=== PATIENT | male | born 1950 | race American Indian/Alaskan Native ===

== ENCOUNTER 2016-09-26 15:27 | Inpatient (IN) | payer MEDICARE ==
[2016-09-26] MEDS ORDERED: NACL 0.9% 500 ML 500 ML IV ONE (16:06)
[2016-09-26] MEDS ORDERED: TYLENOL PR ONE (16:06)
[2016-09-26] MEDS ORDERED: TYLENOL PR STA (16:06)
[2016-09-26] MEDS ORDERED: ZOSYN/NS 4.5GM/100ML 4.5 GM/100 ML VIAL IV ONE (16:35)
[2016-09-26] MEDS ORDERED: NACL 0.9% 1000 ML 1,000 ML IV ONE (16:58)
[2016-09-26] MEDS ORDERED: XOPENEX IH ONE (17:01)
[2016-09-26] MEDS ORDERED: ATROVENT IH ONE (17:01)
[2016-09-26 17:02] LABS: Hematocrit 34.4 % (35.5-45.6); Hemoglobin 10.9 gm/dl (11.8-15.2); Mean Corpuscular HGB Conc 32 % (32-34); Mean Corpuscular Volume 70 fl (84-94); Platelet Count 228 K/mm3 (140-440); Red Cell Distribution Width 17.5 % (13.2-15.2); White Blood Count 10.6 K/mm3 (4.5-11.0)
--- NOTE | 2016-09-26 17:02 | Emergency Department Report ---
ED Fever HPI - General Chief Complaint: Fever Stated Complaint: HIGH TEMP Time Seen by Provider: 09/26/16 16:33 Source: patient Exam Limitations: clinical condition, physical impairment - History of Present Illness Initial Comments: 66-year-old male with a past medical history of dementia, diabetes, hypertension , liver disease, seizures, CVA, peg tube placement presents to the hospital complains of fever and pneumonia. Patient was sent from [facility] with a chest x-ray that was performed today that was read as right upper and lower lobe infiltrate with pleural effusion. Question of aspiration. Patient is nonverbal currently and minimally responsive and unable to provide any history of present illness. ED Review of Systems ROS: Stated complaint: HIGH TEMP Other details as noted in HPI Comment: Unobtainable due to pts medical conditions ED Past Medical Hx - Past Medical History Hx Hypertension: Yes Hx CVA: Yes Hx Congestive Heart Failure: No Hx Diabetes: No Hx Liver Disease: Yes Hx Seizures: Yes Hx Asthma: No Hx COPD: No Hx Dementia: Yes Hx HIV: No Additional medical history: End Stage Liver Disease. Trach. Encephalopathy. Anemia. Gastrostomy. Aphasia. GI Bleed. Hyperlipidemia. - Surgical History Additional Surgical History: PEG placement. - Social History Smoking Status: Unknown if ever smoked - Medications Home Medications: Home Medications Medication Instructions Recorded Confirmed Last Taken Type Ascorbate Calcium [Vitamin C] 500 mg FEEDTUBE BID 09/15/14 06/24/16 Unknown History Aspirin [Aspirin TAB] 325 mg FEEDTUBE QDAY 09/15/14 06/24/16 Unknown History Atorvastatin [Lipitor] 80 mg FEEDTUBE QHS 09/15/14 06/24/16 Unknown History Enoxaparin [Lovenox] 30 mg SQ BID 09/15/14 06/24/16 Unknown History Glycopyrrolate [Robinul Forte] 2 mg FEEDTUBE TID 09/15/14 06/24/16 Unknown History Ipratropium/Albuterol Sulfate 1 ampul IH Q6HRT PRN 09/15/14 06/24/16 Unknown History [Duoneb 0.5 mg-3 mg/3 ml Soln] Metoprolol [Lopressor TAB] 50 mg FEEDTUBE BID 09/15/14 06/24/16 Unknown History amLODIPine [Norvasc] 10 mg FEEDTUBE DAILY 09/15/14 06/24/16 Unknown History Multivit &Minerals/Ferrous Fum 9 mg PO DAILY 11/04/14 06/24/16 Unknown History [Complete Multivit-Mineral Liq] Lactulose [Cephulac] 20 gm FEEDTUBE TID #30 oral.liqd 05/10/15 06/24/16 Unknown Rx Lipase/Protease/Amylase [Pancreaze 1 each FEEDTUBE PRN PRN #30 capsule 05/10/15 06/24/16 Unknown Rx 10,500 Unit] Simple Syrup 30 ml FEEDTUBE PRN PRN #30 05/10/15 06/24/16 Unknown Rx oral.liqd Sodium Bicarbonate 325 mg FEEDTUBE PRN PRN #30 tablet 05/10/15 06/24/16 Unknown Rx Doxycycline [Vibramycin CAP] 100 mg PO Q12HR 7 Days 03/22/16 06/24/16 Unknown Rx LORazepam [Ativan] 2 mg PO Q8HR PRN #30 tablet 03/22/16 06/24/16 Unknown Rx levETIRAcetam [Keppra TAB] 500 mg PO BID #60 tablet 06/25/16 Unknown Rx ED Physical Exam - General Limitations: Physical Limitation - Other Other exam information: General: No limitations, patient is alert in no acute distress Head exam: Atraumatic, normocephalic Eyes exam: Normal appearance ENT: Moist mucous membrane, normal oropharynx Neck exam: Normal inspection Respiratory exam: Bilateral rhonchi with mild expiratory wheeze Cardiovascular: Mild Tachycardia Abdomen: Soft, nondistended, positive PEG tube, no grimace with palpation Extremity: Limited range of motion with contraction : [place] upon arrival Back: Normal Inspection, full range of motion, no tenderness Neurologic: Lethargic, minimally responsive, would not follow commands, contracted extremities Psychiatric: normal affect, normal mood Skin: Left lateral foot superficial ulceration without signs of infection ED Course Vital Signs 09/26/16 09/26/16 09/26/16 15:41 16:09 17:11 Temperature 101.9 F H 102.1 F H Pulse Rate 107 H Pulse Rate [ 110 H Anterior Bilateral Throughout] Respiratory 16 Rate Respiratory 20 Rate [Anterior Bilateral Throughout] Blood Pressure 108/61 Blood Pressure 108/61 [Right] O2 Sat by Pulse 96 Oximetry 09/26/16 17:50 Temperature Pulse Rate Pulse Rate [ 112 H Anterior Bilateral Throughout] Respiratory Rate Respiratory 20 Rate [Anterior Bilateral Throughout] Blood Pressure Blood Pressure [Right] O2 Sat by Pulse Oximetry - Reevaluation(s) Reevaluation #1: 09/26/16 18:00 pt received normal saline, Tylenol, Zofran, Xopenex, Atrovent in the ED 09/26/16 18:00 ED Medical Decision Making - Lab Data Result diagrams: 09/26/16 16:20 09/26/16 16:20 Lab Results 09/26/16 09/26/16 09/26/16 Range/Units 16:20 16:20 16:20 WBC 10.6 (4.5-11.0) K/mm3 RBC 4.90 (3.65-5.03) M/mm3 Hgb 10.9 L (11.8-15.2) gm/dl Hct 34.4 L (35.5-45.6) % MCV 70 L (84-94) fl MCH 22 L (28-32) pg MCHC 32 (32-34) % RDW 17.5 H (13.2-15.2) % Plt Count 228 (140-440) K/mm3 Seg Neutrophils % [employer] Operator PT 14.7 (12.2-14.9) Sec. INR 1.16 H (0.87-1.13) VBG pH (7.320-7.420) Sodium 142 (137-145) mmol/L Potassium 3.4 L (3.6-5.0) mmol/L Chloride 95.6 L (98-107) mmol/L Carbon Dioxide 35 H (22-30) mmol/L Anion Gap 15 mmol/L BUN 17 (9-20) mg/dL Creatinine 1.1 (0.8-1.5) mg/dL Estimated GFR > 60 ml/min BUN/Creatinine Ratio 15.45 % Glucose 115 H (75-100) mg/dL Lactic Acid (0.7-2.0) mmol/L Calcium 8.7 (8.4-10.2) mg/dL Total Bilirubin 0.4 (0.1-1.2) mg/dL ALT 28 (7-56) units/L Alkaline Phosphatase 93 (35-129) units/L Total Protein 7.6 (6.3-8.2) g/dL Albumin 3.2 L (3.9-5) g/dL Albumin/Globulin Ratio 0.7 % Urine Color (Yellow) Urine Turbidity (Clear) Urine pH (5.0-7.0) Ur Specific [place] (1.003-1.030) Urine Protein (Negative) mg/dL Urine Glucose (UA) (Negative) mg/dL Urine Ketones (Negative) mg/dL Urine Blood (Negative) Urine Nitrite (Negative) Urine Bilirubin (Negative) Urine Urobilinogen (<2.0) mg/dL Ur Leukocyte Esterase (Negative) Urine WBC (Auto) (0.0-6.0) /HPF Urine RBC (Auto) (0.0-6.0) /HPF U Epithel Cells (Auto) (0-13.0) /HPF Urine Bacteria (Auto) (Negative) /HPF Urine Mucus /HPF 09/26/16 09/26/16 09/26/16 Range/Units 16:20 16:20 16:44 WBC (4.5-11.0) K/mm3 RBC (3.65-5.03) M/mm3 Hgb (11.8-15.2) gm/dl Hct (35.5-45.6) % MCV (84-94) fl MCH (28-32) pg MCHC (32-34) % RDW (13.2-15.2) % Plt Count (140-440) K/mm3 Seg Neutrophils % PT (12.2-14.9) Sec. INR (0.87-1.13) VBG pH 7.417 (7.320-7.420) Sodium (137-145) mmol/L Potassium (3.6-5.0) mmol/L Chloride (98-107) mmol/L Carbon Dioxide (22-30) mmol/L Anion Gap mmol/L BUN (9-20) mg/dL Creatinine (0.8-1.5) mg/dL Estimated GFR ml/min BUN/Creatinine Ratio % Glucose (75-100) mg/dL Lactic Acid 1.0 (0.7-2.0) mmol/L Calcium (8.4-10.2) mg/dL Total Bilirubin (0.1-1.2) mg/dL ALT (7-56) units/L Alkaline Phosphatase (35-129) units/L Total Protein (6.3-8.2) g/dL Albumin (3.9-5) g/dL Albumin/Globulin Ratio % Urine Color Cherie (Yellow) Urine Turbidity Slightly-cloudy (Clear) Urine pH 5.0 (5.0-7.0) Ur Specific [place] 1.024 (1.003-1.030) Urine Protein 30 mg/dl (Negative) mg/dL Urine Glucose (UA) Neg (Negative) mg/dL Urine Ketones Tr (Negative) mg/dL Urine Blood Neg (Negative) Urine Nitrite Neg (Negative) Urine Bilirubin Neg (Negative) Urine Urobilinogen < 2.0 (<2.0) mg/dL Ur Leukocyte Esterase Mod (Negative) Urine WBC (Auto) 29.0 H (0.0-6.0) /HPF Urine RBC (Auto) 3.0 (0.0-6.0) /HPF U Epithel Cells (Auto) 2.0 (0-13.0) /HPF Urine Bacteria (Auto) 2+ (Negative) /HPF Urine Mucus 2+ /HPF - EKG Data -: EKG Interpreted by Me (sinus tach 101 incomplete right bundle-branch block) - Radiology Data Radiology results: image reviewed (cxr: r upper, r lower infiltrate) - Medical Decision Making Zosyn order to cover for aspiration pneumonia. Patient has indwelling [place]. UA was sent from [place] port and reveals urine leukocytosis. Culture is pending. Patient will be admitted to the hospital for pneumonia. - Differential Diagnosis sepsis, UTI, pneumonia Critical Care Time: No Critical care attestation.: If time is entered above; I have spent that time in minutes in the direct care of this critically ill patient, excluding procedure time. ED Disposition Clinical Impression: Aspiration pneumonia, CVA, old, hemiparesis, Debility, Urine leukocytes, Fever Disposition: OP ADMITTED IP TO THIS HOSP Is pt being admited?: Yes Condition: Stable Time of Disposition: 18:03 (Dr meeks/hosp)
[2016-09-26 17:06] LABS: Mean Corpuscular Hemoglobin 22 pg (28-32)
[2016-09-26 17:19] LABS: Bacteria,Urine 2+ /HPF (Negative); Bilirubin,Urine NEG (Negative); Blood,Urine NEG (Negative); Ketones,Urine TR mg/dL (Negative); Leukocyte Esterase,Urine MOD (Negative); Mucus,Urine 2+ /HPF; Nitrite,Urine NEG (Negative); Urobilinogen,Urine < 2.0 mg/dL (<2.0)
[2016-09-26 17:29] LABS: Alanine Aminotransferase 28 units/L (7-56); Albumin 3.2 g/dL (3.9-5); Albumin/Globulin Ratio 0.7 %; Alkaline Phosphatase 93 units/L (35-129); Anion Gap 15 mmol/L; BUN/Creatinine Ratio 15.45; Bilirubin,Total 0.4 mg/dL (0.1-1.2); Blood Urea Nitrogen 17 mg/dL (9-20); Calcium 8.7 mg/dL (8.4-10.2); Carbon Dioxide 35 mmol/L (22-30); Chloride 95.6 mmol/L (98-107); Glucose 115 mg/dL (75-100); Potassium 3.4 mmol/L (3.6-5.0); Sodium 142 mmol/L (137-145); Total Protein 7.6 g/dL (6.3-8.2)
--- NOTE | 2016-09-26 17:41 | Admit Criteria Form ---
Admission Criteria Documentation: PNEUMONIA DUE TO ASPIRATION Clinical Indications for Admission to Inpatient Care (Place 'X' for any and all applicable criteria): Admission is indicated for ANY ONE of the following(1)(2)(3): [X]I. Respiratory abnormalities [ ]II. Hemodynamic instability [ ]III. Aspiration pneumonitis associated with an acute event (eg, neurologic change, massive emesis, drug overdose) [ ]IV. Patient receives chronic care in a setting (eg, snf care, shelter facility) where care for the aspiration has failed or cannot be provided (eg, patient is clinically unstable, and aggressive medical care is desired) (4) Extended stay beyond goal length of stay may be needed for(1)(6): [ ]a) Continued aspiration [ ]b) Empyema, atelectasis, large pleural effusion or lung abscess [ ]c) Severe hypoxemia or respiratory failure [ ]d) Comorbid clinically significant electrolyte disorder or acute renal injury (eg, hypernatremia, hyponatremia) [ ]e) Need for parenteral or tube (enteral) feedings (eg, severe malnutrition) [ ]f) Active comorbidities (eg, heart failure, COPD, renal failure) [ ]g) Comorbid severe neurologic problems(2)(17) The original [employer] content created by [employer] has been revised. The portions of the content which have been revised are identified through the use of italic text or in bold, and [facility] has neither reviewed nor approved the modified material. All other unmodified content is copyright [employer]. Please see references footnoted in the original [facility] edition 2016 Admission Criteria Met: Yes
[2016-09-26 18:00] LABS: INR 1.16 (0.87-1.13)
[2016-09-26] MEDS ORDERED: SODIUM BICARBONATE FEEDTUBE PRN (19:09)
[2016-09-26] MEDS ORDERED: SIMPLE SYRUP FEEDTUBE PRN (19:09)
[2016-09-26] MEDS ORDERED: ATIVAN PO PRN (19:09)
[2016-09-26] MEDS ORDERED: PANCREAZE DR 10,500 UNIT FEEDTUBE PRN (19:09)
[2016-09-26] MEDS ORDERED: TYLENOL PO PRN (19:10)
[2016-09-26] MEDS ORDERED: ZOFRAN IV PRN ×2 (19:10→19:13)
[2016-09-26] MEDS ORDERED: DULCOLAX PR PRN ×2 (19:10→19:13)
[2016-09-26] MEDS ORDERED: MILK OF MAGNESIA PO PRN ×2 (19:10→19:13)
[2016-09-26] MEDS ORDERED: MORPHINE IV PRN (19:13)
--- NOTE | 2016-09-26 19:25 | History and Physical Report ---
History of Present Illness Date of examination: 09/26/16 Date of admission: 09/26/16 18:03 Chief complaint: fever History of present illness: 66-year-old male well known to myself with a history of advanced dementia, CVA, hypertension, diabetes, seizure disorder, recurrent aspiration pneumonia. PEG tube placement. Presents from [place] which chief complaint of fever x-ray was obtained at the skilled nursing was found to have right upper lobe infiltrate consistent with aspiration pneumonia. Patient has been recently started on Robinul to see if we could prevent aspiration pneumonia but was unsuccessful. Patient still has recurrent secretions as well as increased risk from PEG tube feedings. At present patient remains chronically ill appearing. She has fever of 102 to and hypotensive. She was chronically ill. Past History Past Medical History: arrhythmia, arthritis, COPD, diabetes, GERD, hypertension , hyperlipidemia, seizures, stroke. denies: acute NC, atrial fib, anemia, CAD, cancer, dialysis, DVT, ESRD, heart failure, hepatitis, HIV/AIDS, hyperthyroidism , hypothyroidism, liver disease, migraines, PVD, pulmonary embolism, renal failure, sarcoidosis Past Surgical History: Other (unknown past surgical history besides PEG tube trach) Social history: no significant social history, other ([facility] will need to consult family about code status.). denies: smoking, alcohol abuse , prescription drug abuse, IV drug use Family history: no significant family history Medications and Allergies Allergies Allergy/AdvReac Type Severity Reaction Status Date / Time No Known Allergies Allergy Verified 08/20/14 06:01 Home Medications Medication Instructions Recorded Confirmed Last Taken Type Ascorbate Calcium [Vitamin C] 500 mg FEEDTUBE BID 09/15/14 06/24/16 Unknown History Aspirin [Aspirin TAB] 325 mg FEEDTUBE QDAY 09/15/14 06/24/16 Unknown History Atorvastatin [Lipitor] 80 mg FEEDTUBE QHS 09/15/14 06/24/16 Unknown History Enoxaparin [Lovenox] 30 mg SQ BID 09/15/14 06/24/16 Unknown History Glycopyrrolate [Robinul Forte] 2 mg FEEDTUBE TID 09/15/14 06/24/16 Unknown History Ipratropium/Albuterol Sulfate 1 ampul IH Q6HRT PRN 09/15/14 06/24/16 Unknown History [Duoneb 0.5 mg-3 mg/3 ml Soln] Metoprolol [Lopressor TAB] 50 mg FEEDTUBE BID 09/15/14 06/24/16 Unknown History amLODIPine [Norvasc] 10 mg FEEDTUBE DAILY 09/15/14 06/24/16 Unknown History Multivit &Minerals/Ferrous Fum 9 mg PO DAILY 11/04/14 06/24/16 Unknown History [Complete Multivit-Mineral Liq] Lactulose [Cephulac] 20 gm FEEDTUBE TID #30 oral.liqd 05/10/15 06/24/16 Unknown Rx Lipase/Protease/Amylase [Pancreaze 1 each FEEDTUBE PRN PRN #30 capsule 05/10/15 06/24/16 Unknown Rx 10,500 Unit] Simple Syrup 30 ml FEEDTUBE PRN PRN #30 05/10/15 06/24/16 Unknown Rx oral.liqd Sodium Bicarbonate 325 mg FEEDTUBE PRN PRN #30 tablet 05/10/15 06/24/16 Unknown Rx Doxycycline [Vibramycin CAP] 100 mg PO Q12HR 7 Days 03/22/16 06/24/16 Unknown Rx LORazepam [Ativan] 2 mg PO Q8HR PRN #30 tablet 03/22/16 06/24/16 Unknown Rx levETIRAcetam [Keppra TAB] 500 mg PO BID #60 tablet 06/25/16 Unknown Rx Active Meds: Active Medications Acetaminophen (Tylenol) 650 mg PO Q4H PRN PRN Reason: Pain MILD(1-3)/Fever >100.5/OCHOA Acetaminophen (Tylenol) 650 mg PO Q4H PRN PRN Reason: Pain MILD(1-3)/Fever >100.5/OCHOA Albuterol/Ipratropium (Duoneb 0.5 Mg-3 Mg/3 Ml Soln) 1 ampul IH Q6HRT JASON Lipase/Protease/Amylase (Pancreodessa Singh 10,500 Unit) 1 each FEEDTUBE PRN PRN PRN Reason: For Clogged Feeding Tube Aspirin (Aspirin) 325 mg FEEDTUBE QDAY JASON Bisacodyl (Dulcolax) 10 mg WV QDAY PRN PRN Reason: Constipation unrelieved by MOM Bisacodyl (Dulcolax) 10 mg W[place] QDAY PRN PRN Reason: Constipation unrelieved by MOM Doxycycline Hyclate (Vibramycin) 100 mg PO Q12HR JASON Enoxaparin Sodium (Lovenox) 30 mg SUB-Q BID JASON Famotidine (Pepcid) 20 mg IV BID JASON Dextrose/Sodium Chloride (D5ns) 1,000 mls @ 100 mls/hr IV DIRECT JASON Lactulose (Cephulac) 20 gm FEEDTUBE TID JASON Levetiracetam (Keppra) 500 mg PO BID JASON Lorazepam (Ativan) 2 mg PO Q8HR PRN PRN Reason: Seizures Magnesium Hydroxide (Milk Of Magnesia) 30 ml PO Q4H PRN PRN Reason: Constipation Magnesium Hydroxide (Milk Of Magnesia) 30 ml PO Q4H PRN PRN Reason: Constipation Morphine Sulfate (Morphine) 2 mg IV Q4H PRN PRN Reason: Pain, Moderate (4-6) Ondansetron HCl (Zofran) 4 mg IV Q8H PRN PRN Reason: N/V unrelieved by Reglan Ondansetron HCl (Zofran) 4 mg IV Q8H PRN PRN Reason: N/V unrelieved by Reglan Simple Syrup (Simple Syrup) 30 ml FEEDTUBE PRN PRN PRN Reason: Hypoglycemia Sodium Bicarbonate (Sodium Bicarbonate) 325 mg FEEDTUBE PRN PRN PRN Reason: For Clogged Feeding Tube Review of Systems ROS unobtainable: due to mental status Constitutional: weight loss, weight gain Exam - Constitutional Vitals: Temp Pulse Resp BP Pulse Ox 102.1 F H 103 H 20 109/64 97 09/26/16 16:09 09/26/16 18:30 09/26/16 18:30 09/26/16 18:30 09/26/16 18:30 General appearance: Present: obese, other (moderate distress chronically ill- appearing) - EENT Eyes: Present: PERRL ENT: hearing intact, clear oral mucosa - Neck Neck: Present: supple, normal ROM - Respiratory Respiratory effort: labored Respiratory: bilateral: diminished, rhonchi (bilateral right greater than left) - Cardiovascular Rhythm: other (tachycardia) Heart Sounds: Present: S1 & S2 - Extremities Extremities: pulses symmetrical, No edema Extremity abnormal: other (abnormal range of motion diminished pulses trace edema decubitus wound on sacrum and left heel stage III and 4) - Abdominal General gastrointestinal: Present: soft, tender, non-distended, other (obese) Male genitourinary: Present: normal - Integumentary Integumentary: Present: clear, warm, dry - Musculoskeletal Musculoskeletal: generalized weakness, other (chronic contractures dense hemiparesis) - Psychiatric Psychiatric: other (nonverbal and unresponsive advanced dementia) - Neurologic Neurologic: focal deficits Results - Labs CBC & Chem 7: 09/26/16 16:20 09/26/16 16:20 Labs: Laboratory Last Values WBC 10.6 K/mm3 (4.5-11.0) 09/26/16 16:20 RBC 4.90 M/mm3 (3.65-5.03) 09/26/16 16:20 Hgb 10.9 gm/dl (11.8-15.2) L 09/26/16 16:20 Hct 34.4 % (35.5-45.6) L 09/26/16 16:20 MCV 70 fl (84-94) L 09/26/16 16:20 MCH 22 pg (28-32) L 09/26/16 16:20 MCHC 32 % (32-34) 09/26/16 16:20 RDW 17.5 % (13.2-15.2) H 09/26/16 16:20 Plt Count 228 K/mm3 (140-440) 09/26/16 16:20 Seg Neutrophils % Medical Claims Processor 09/26/16 16:20 PT 14.7 Sec. (12.2-14.9) 09/26/16 16:20 INR 1.16 (0.87-1.13) H 09/26/16 16:20 VBG pH 7.417 (7.320-7.420) 09/26/16 16:20 Sodium 142 mmol/L (137-145) 09/26/16 16:20 Potassium 3.4 mmol/L (3.6-5.0) L 09/26/16 16:20 Chloride 95.6 mmol/L (98-107) L 09/26/16 16:20 Carbon Dioxide 35 mmol/L (22-30) H 09/26/16 16:20 Anion Gap 15 mmol/L 09/26/16 16:20 BUN 17 mg/dL (9-20) 09/26/16 16:20 Creatinine 1.1 mg/dL (0.8-1.5) 09/26/16 16:20 Estimated GFR > 60 ml/min 09/26/16 16:20 BUN/Creatinine Ratio 15.45 % 09/26/16 16:20 Glucose 115 mg/dL (75-100) H 09/26/16 16:20 Lactic Acid 1.0 mmol/L (0.7-2.0) 09/26/16 16:20 Calcium 8.7 mg/dL (8.4-10.2) 09/26/16 16:20 Total Bilirubin 0.4 mg/dL (0.1-1.2) 09/26/16 16:20 AST 46 units/L (5-40) H 09/26/16 16:20 ALT 28 units/L (7-56) 09/26/16 16:20 Alkaline Phosphatase 93 units/L (35-129) 09/26/16 16:20 Total Protein 7.6 g/dL (6.3-8.2) 09/26/16 16:20 Albumin 3.2 g/dL (3.9-5) L 09/26/16 16:20 Albumin/Globulin Ratio 0.7 % 09/26/16 16:20 Urine Color Cherie (Yellow) 09/26/16 16:44 Urine Turbidity Slightly-cloudy (Clear) 09/26/16 16:44 Urine pH 5.0 (5.0-7.0) 09/26/16 16:44 Ur Specific [place] 1.024 (1.003-1.030) 09/26/16 16:44 Urine Protein 30 mg/dl mg/dL (Negative) 09/26/16 16:44 Urine Glucose (UA) Neg mg/dL (Negative) 09/26/16 16:44 Urine Ketones Tr mg/dL (Negative) 09/26/16 16:44 Urine Blood Neg (Negative) 09/26/16 16:44 Urine Nitrite Neg (Negative) 09/26/16 16:44 Urine Bilirubin Neg (Negative) 09/26/16 16:44 Urine Urobilinogen < 2.0 mg/dL (<2.0) 09/26/16 16:44 Ur Leukocyte Esterase Mod (Negative) 09/26/16 16:44 Urine WBC (Auto) 29.0 /HPF (0.0-6.0) H 09/26/16 16:44 Urine RBC (Auto) 3.0 /HPF (0.0-6.0) 09/26/16 16:44 U Epithel Cells (Auto) 2.0 /HPF (0-13.0) 09/26/16 16:44 Urine Bacteria (Auto) 2+ /HPF (Negative) 09/26/16 16:44 Urine Mucus 2+ /HPF 09/26/16 16:44 - Imaging and Cardiology EKG: image reviewed Chest x-ray: image reviewed Assessment and Plan Advance Directives: No (awaiting family) VTE prophylaxis?: Chemical Plan of care discussed with patient/family: Yes - Patient Problems (1) Aspiration pneumonia Current Visit: Yes Status: Acute Qualifiers: Aspiration pneumonia type: A Laterality: L Lung location: L Plan to address problem: Patient now presents with recurrent episodes of aspiration pneumonia. Secondary to increased secretions PEG tube feedings. Has attempted Robinul at present noneffective. Patient still now has increased volumes of coughing. Persistent coughing persistent secretions persistent drooling. All of this secondary to end-stage dementia. This paints poor picture and a sign of poor structural and functional decline. Would not be able to prevent all aspiration pneumonia and overall prognosis is poor. Quality of life is extremely poor. A tip to call family for discussions about code status. For now we'll bring patient and placed on Zosyn 3.375 mg IV every 8. We'll also treat with vancomycin. Patient has decubitus wounds did not appear to be infected they were present upon admission. Follow-up blood culture data,. Also start patient on duo nebs every 6 hours and patient may benefit from Mucomyst with all the secretions. (2) Debility Current Visit: Yes Status: Acute Plan to address problem: Debility secondary to advanced dementia chronic contractures decubitus wounds. (3) Fever Current Visit: No Status: Acute Qualifiers: Fever type: F Encounter type: E Plan to address problem: Fever secondary to pneumonia. Patient is has persistent fever. (4) Urine leukocytes Current Visit: Yes Status: Acute Plan to address problem: Can be covered with Zosyn and vancomycin. (5) CVA, old, hemiparesis Current Visit: Yes Status: Chronic Plan to address problem: Advance hemiparesis advanced dementia. Risk factor control. (6) HTN (hypertension), malignant Current Visit: No Status: Acute Plan to address problem: At present hypotensive. This is secondary to sepsis we'll hold all antihypertensives medicines treat with IV fluids. (7) Seizure Current Visit: No Status: Acute Plan to address problem: Seizures a been well controlled continue present medical management. (8) Sacral wound Current Visit: No Status: Chronic Qualifiers: Encounter type: E Plan to address problem: Sacral and heel decubitus different stages of healing. Will be very difficult to heal patient so very sick we'll provide local wound care discussed particular time vancomycin also treat empirically
[2016-09-26] MEDS ORDERED: ROBITUSSIN DM PO PRN (20:25)
[2016-09-26] MEDS: DUONEB 0.5 MG-3 MG/3 ML SOLN IH SCH (20:35)
[2016-09-26 20:57] LABS: Blastocytes % (Manual) 0 %
[2016-09-26 20:58] LABS: Basophils % (Manual) 0 % (0.0-1.8)
[2016-09-26 21:02] LABS: Anisocytosis 1+
[2016-09-26 21:03] LABS: Diff Status Complete; Elliptocytes 1+; Platelet Estimate Consistent w Auto; Poikilocytosis 1+
[2016-09-27] MEDS: VIBRAMYCIN PO SCH ×2 (00:17→12:25)
[2016-09-27] MEDS: KEPPRA PO SCH ×2 (00:17→12:21)
[2016-09-27] MEDS: PEPCID IV SCH ×2 (00:17→12:22)
[2016-09-27] MEDS: CEPHULAC FEEDTUBE SCH ×4 (00:17→19:11)
[2016-09-27] MEDS: TYLENOL PO PRN ×3 (00:18→12:40)
[2016-09-27] MEDS: LOVENOX SUB-Q SCH ×2 (00:18→12:21)
[2016-09-27] MEDS: D5NS 1,000 ML IV SCH ×2 (00:33→08:51)
[2016-09-27] MEDS: DUONEB 0.5 MG-3 MG/3 ML SOLN IH SCH ×4 (02:12→21:00)
[2016-09-27 05:36] LABS: Alanine Aminotransferase 22 units/L (7-56); Albumin 2.9 g/dL (3.9-5); Albumin/Globulin Ratio 0.7 %; Alkaline Phosphatase 83 units/L (35-129); Anion Gap 14 mmol/L; BUN/Creatinine Ratio 18.88; Bilirubin,Total 0.4 mg/dL (0.1-1.2); Blood Urea Nitrogen 17 mg/dL (9-20); Calcium 8.1 mg/dL (8.4-10.2); Carbon Dioxide 34 mmol/L (22-30); Glucose 150 mg/dL (75-100); Sodium 146 mmol/L (137-145); Total Protein 7.2 g/dL (6.3-8.2)
[2016-09-27 07:01] LABS: Potassium 3.1 mmol/L (3.6-5.0)
--- NOTE | 2016-09-27 07:59 | XRay Report ---
AP CHEST: HISTORY: Sepsis, fever Subtle infiltration has developed in the right upper lobe since 06/24/16. This could represent an early pneumonia. The remainder of the lungs are clear. No pleural effusion or pneumothorax. Normal heart and mediastinal structures. Normal bony thorax. IMPRESSION: Subtle right upper lobe infiltrate.
[2016-09-27] MEDS ORDERED: FLUARIX QUAD 2016-2017(36 MOS+) IM ONE (12:00)
[2016-09-27] MEDS: LEVAQUIN 750MG/150ML 750 MG/150 ML BAG IV SCH (12:20)
[2016-09-27] MEDS: ASPIRIN FEEDTUBE SCH (12:21)
[2016-09-28] MEDS: D5NS 1,000 ML IV SCH ×2 (01:21→12:54)
[2016-09-28] MEDS: VIBRAMYCIN PO SCH ×3 (01:23→23:17)
[2016-09-28] MEDS: KEPPRA PO SCH ×3 (01:23→23:17)
[2016-09-28] MEDS: LOVENOX SUB-Q SCH ×3 (01:24→23:16)
[2016-09-28] MEDS: PEPCID IV SCH ×2 (01:24→10:14)
[2016-09-28] MEDS: CEPHULAC FEEDTUBE SCH ×4 (01:25→23:57)
[2016-09-28] MEDS: DUONEB 0.5 MG-3 MG/3 ML SOLN IH SCH ×4 (01:44→19:18)
[2016-09-28] MEDS: TYLENOL PO PRN (08:23)
[2016-09-28] MEDS: LEVAQUIN 750MG/150ML 750 MG/150 ML BAG IV SCH (10:10)
[2016-09-28] MEDS: ASPIRIN FEEDTUBE SCH (10:18)
--- NOTE | 2016-09-28 13:25 | Progress Note ---
Assessment and Plan - Patient Problems (1) Acute and chronic respiratory failure Current Visit: Yes Status: Acute Qualifiers: Respiratory failure complication: R Plan to address problem: Supplemental oxygen, nebs, aspiration precautions, supportive care, pulmonary toilet (2) Aspiration pneumonia Current Visit: Yes Status: Acute Qualifiers: Aspiration pneumonia type: A Laterality: L Lung location: L Plan to address problem: Pneumonia Protocol: IV abx, IVF, supportive care,supplemental oxygen, nebs (3) Debility Current Visit: Yes Status: Acute Plan to address problem: Bed alarm, fall precautions. (4) Dyslipidemia Current Visit: No Status: Chronic Plan to address problem: continue current therapy (5) HTN (hypertension) Current Visit: No Status: Chronic Qualifiers: Hypertension type: essential hypertension Qualified Code(s): I10 - Essential (primary) hypertension Plan to address problem: Monitor bp q shift, continue current therapy (6) Sacral wound Current Visit: No Status: Chronic Qualifiers: Encounter type: E Plan to address problem: continue wound care, q 2turns (7) DVT prophylaxis Current Visit: No Status: Acute History Interval history: Pt lying in bed, confused, No reported nursing events. Pt medically stable overnight. Hospitalist Physical - Constitutional Vitals: Temp Pulse Resp BP Pulse Ox 99.5 F 106 H 24 154/78 96 09/28/16 08:00 09/28/16 09:45 09/28/16 09:45 09/28/16 08:00 09/28/16 12:57 General appearance: Present: no acute distress, obese, other (moderate distress chronically ill-appearing) - Neck Neck: Present: supple - Respiratory Respiratory: bilateral: diminished - Cardiovascular Rhythm: regular Heart Sounds: Present: S1 & S2 - Extremities Extremities: no ischemia Peripheral Pulses: within normal limits - Abdominal General gastrointestinal: soft, non-tender, non-distended - Integumentary Integumentary: Present: clear, dry, decreased turgor - Psychiatric Psychiatric: no intact judgment & insight, no memory intact - Neurologic Neurologic: no gait normal Results - Labs CBC & Chem 7: 09/26/16 16:20 09/27/16 03:34 Labs: Laboratory Last Values WBC 10.6 K/mm3 (4.5-11.0) 09/26/16 16:20 RBC 4.90 M/mm3 (3.65-5.03) 09/26/16 16:20 Hgb 10.9 gm/dl (11.8-15.2) L 09/26/16 16:20 Hct 34.4 % (35.5-45.6) L 09/26/16 16:20 MCV 70 fl (84-94) L 09/26/16 16:20 MCH 22 pg (28-32) L 09/26/16 16:20 MCHC 32 % (32-34) 09/26/16 16:20 RDW 17.5 % (13.2-15.2) H 09/26/16 16:20 Plt Count 228 K/mm3 (140-440) 09/26/16 16:20 Add Manual Diff Complete 09/26/16 16:20 Total Counted 100 09/26/16 16:20 Seg Neutrophils % Piecer Up 09/26/16 16:20 Seg Neuts % (Manual) 55.0 % (40.0-70.0) 09/26/16 16:20 Band Neutrophils % 38.0 % 09/26/16 16:20 Lymphocytes % (Manual) 3.0 % (13.4-35.0) L 09/26/16 16:20 Reactive Lymphs % (Man) 0 % 09/26/16 16:20 Monocytes % (Manual) 3.0 % (0.0-7.3) 09/26/16 16:20 Eosinophils % (Manual) 1.0 % (0.0-4.3) 09/26/16 16:20 Basophils % (Manual) 0 % (0.0-1.8) 09/26/16 16:20 Metamyelocytes % 0 % 09/26/16 16:20 Myelocytes % 0 % 09/26/16 16:20 Promyelocytes % 0 % 09/26/16 16:20 Blast Cells % 0 % 09/26/16 16:20 Nucleated RBC % Not Reportable 09/26/16 16:20 Seg Neutrophils # Man 5.8 K/mm3 (1.8-7.7) 09/26/16 16:20 Band Neutrophils # 4.0 K/mm3 09/26/16 16:20 Lymphocytes # (Manual) 0.3 K/mm3 (1.2-5.4) L 09/26/16 16:20 Abs React Lymphs (Man) 0.0 K/mm3 09/26/16 16:20 Monocytes # (Manual) 0.3 K/mm3 (0.0-0.8) 09/26/16 16:20 Eosinophils # (Manual) 0.1 K/mm3 (0.0-0.4) 09/26/16 16:20 Basophils # (Manual) 0.0 K/mm3 (0.0-0.1) 09/26/16 16:20 Metamyelocytes # 0.0 K/mm3 09/26/16 16:20 Myelocytes # 0.0 K/mm3 09/26/16 16:20 Promyelocytes # 0.0 K/mm3 09/26/16 16:20 Blast Cells # 0.0 K/mm3 09/26/16 16:20 WBC Morphology Not Reportable 09/26/16 16:20 Hypersegmented Neuts Not Reportable 09/26/16 16:20 Hyposegmented Neuts Not Reportable 09/26/16 16:20 Hypogranular Neuts Not Reportable 09/26/16 16:20 Smudge Cells Not Reportable 09/26/16 16:20 Toxic Granulation Not Reportable 09/26/16 16:20 Toxic Vacuolation Not Reportable 09/26/16 16:20 Dohle Bodies Not Reportable 09/26/16 16:20 Pelger-Huet Anomaly Not Reportable 09/26/16 16:20 Rodney Rods Not Reportable 09/26/16 16:20 Platelet Estimate Consistent w auto 09/26/16 16:20 Clumped Platelets Not Reportable 09/26/16 16:20 Plt Clumps, EDTA Not Reportable 09/26/16 16:20 Large Platelets Not Reportable 09/26/16 16:20 Giant Platelets Not Reportable 09/26/16 16:20 Platelet Satelliting Not Reportable 09/26/16 16:20 Plt Morphology Comment Not Reportable 09/26/16 16:20 RBC Morphology Not Reportable 09/26/16 16:20 Dimorphic RBCs Not Reportable 09/26/16 16:20 Polychromasia Not Reportable 09/26/16 16:20 Hypochromasia Not Reportable 09/26/16 16:20 Poikilocytosis 1+ 09/26/16 16:20 Anisocytosis 1+ 09/26/16 16:20 Microcytosis Not Reportable 09/26/16 16:20 Macrocytosis Not Reportable 09/26/16 16:20 Spherocytes Not Reportable 09/26/16 16:20 Pappenheimer Bodies Not Reportable 09/26/16 16:20 Sickle Cells Not Reportable 09/26/16 16:20 Target Cells Not Reportable 09/26/16 16:20 Tear Drop Cells Not Reportable 09/26/16 16:20 Ovalocytes Not Reportable 09/26/16 16:20 Helmet Cells Not Reportable 09/26/16 16:20 [place] Bodies Not Reportable 09/26/16 16:20 [place] Rings Not Reportable 09/26/16 16:20 Sharmin Cells Not Reportable 09/26/16 16:20 Bite Cells Not Reportable 09/26/16 16:20 Crenated Cell Not Reportable 09/26/16 16:20 Elliptocytes 1+ 09/26/16 16:20 Acanthocytes (Spur) Not Reportable 09/26/16 16:20 Rouleaux Not Reportable 09/26/16 16:20 Hemoglobin C Crystals Not Reportable 09/26/16 16:20 Schistocytes Not Reportable 09/26/16 16:20 Malaria parasites Not Reportable 09/26/16 16:20 Tomi Bodies Not Reportable 09/26/16 16:20 Hem Pathologist Commnt No 09/26/16 16:20 PT 14.7 Sec. (12.2-14.9) 09/26/16 16:20 INR 1.16 (0.87-1.13) H 09/26/16 16:20 VBG pH 7.417 (7.320-7.420) 09/26/16 16:20 Sodium 146 mmol/L (137-145) H 09/27/16 03:34 Potassium 3.1 mmol/L (3.6-5.0) L 09/27/16 03:34 Chloride 101.0 mmol/L (98-107) 09/27/16 03:34 Carbon Dioxide 34 mmol/L (22-30) H 09/27/16 03:34 Anion Gap 14 mmol/L 09/27/16 03:34 BUN 17 mg/dL (9-20) 09/27/16 03:34 Creatinine 0.9 mg/dL (0.8-1.5) 09/27/16 03:34 Estimated GFR > 60 ml/min 09/27/16 03:34 BUN/Creatinine Ratio 18.88 % 09/27/16 03:34 Glucose 150 mg/dL (75-100) H 09/27/16 03:34 Lactic Acid 0.9 mmol/L (0.7-2.0) 09/26/16 20:51 Calcium 8.1 mg/dL (8.4-10.2) L 09/27/16 03:34 Total Bilirubin 0.4 mg/dL (0.1-1.2) 09/27/16 03:34 AST 37 units/L (5-40) 09/27/16 03:34 ALT 22 units/L (7-56) 09/27/16 03:34 Alkaline Phosphatase 83 units/L (35-129) 09/27/16 03:34 Total Protein 7.2 g/dL (6.3-8.2) 09/27/16 03:34 Albumin 2.9 g/dL (3.9-5) L 09/27/16 03:34 Albumin/Globulin Ratio 0.7 % 09/27/16 03:34 Urine Color Cherie (Yellow) 09/26/16 16:44 Urine Turbidity Slightly-cloudy (Clear) 09/26/16 16:44 Urine pH 5.0 (5.0-7.0) 09/26/16 16:44 Ur Specific [place] 1.024 (1.003-1.030) 09/26/16 16:44 Urine Protein 30 mg/dl mg/dL (Negative) 09/26/16 16:44 Urine Glucose (UA) Neg mg/dL (Negative) 09/26/16 16:44 Urine Ketones Tr mg/dL (Negative) 09/26/16 16:44 Urine Blood Neg (Negative) 09/26/16 16:44 Urine Nitrite Neg (Negative) 09/26/16 16:44 Urine Bilirubin Neg (Negative) 09/26/16 16:44 Urine Urobilinogen < 2.0 mg/dL (<2.0) 09/26/16 16:44 Ur Leukocyte Esterase Mod (Negative) 09/26/16 16:44 Urine WBC (Auto) 29.0 /HPF (0.0-6.0) H 09/26/16 16:44 Urine RBC (Auto) 3.0 /HPF (0.0-6.0) 09/26/16 16:44 U Epithel Cells (Auto) 2.0 /HPF (0-13.0) 09/26/16 16:44 Urine Bacteria (Auto) 2+ /HPF (Negative) 09/26/16 16:44 Urine Mucus 2+ /HPF 09/26/16 16:44
--- NOTE | 2016-09-28 13:30 | Progress Note ---
Assessment and Plan - Patient Problems (1) Acute and chronic respiratory failure Current Visit: Yes Status: Acute Qualifiers: Respiratory failure complication: R Plan to address problem: Supplemental oxygen, nebs, aspiration precautions, supportive care, pulmonary toilet (2) Aspiration pneumonia Current Visit: Yes Status: Acute Qualifiers: Aspiration pneumonia type: A Laterality: L Lung location: L Plan to address problem: Pneumonia Protocol: IV abx, IVF, supportive care,supplemental oxygen, nebs (3) Debility Current Visit: Yes Status: Acute Plan to address problem: Bed alarm, fall precautions. (4) Dyslipidemia Current Visit: No Status: Chronic Plan to address problem: continue current therapy (5) HTN (hypertension) Current Visit: No Status: Chronic Qualifiers: Hypertension type: essential hypertension Qualified Code(s): I10 - Essential (primary) hypertension Plan to address problem: Monitor bp q shift, continue current therapy (6) Sacral wound Current Visit: No Status: Chronic Qualifiers: Encounter type: E Plan to address problem: continue wound care, q 2turns (7) DVT prophylaxis Current Visit: No Status: Acute History Interval history: Pt lying in bed, confused, No reported nursing events. Pt medically stable overnight. Hospitalist Physical - Constitutional Vitals: Temp Pulse Resp BP Pulse Ox 99.5 F 106 H 24 154/78 96 09/28/16 08:00 09/28/16 09:45 09/28/16 09:45 09/28/16 08:00 09/28/16 12:57 General appearance: Present: no acute distress, other (moderate distress chronically ill-appearing) - EENT Eyes: Present: EOM intact - Neck Neck: Present: supple - Respiratory Respiratory: bilateral: diminished - Cardiovascular Rhythm: regular Heart Sounds: Present: S1 & S2 - Extremities Extremities: no ischemia Extremity abnormal: edema Peripheral Pulses: within normal limits - Abdominal General gastrointestinal: soft, non-distended, no hepatomegaly, no splenomegaly - Integumentary Integumentary: Present: clear, dry, decreased turgor - Psychiatric Psychiatric: no intact judgment & insight, no memory intact - Neurologic Neurologic: no gait normal Results - Labs CBC & Chem 7: 09/26/16 16:20 09/27/16 03:34 Labs: Laboratory Last Values WBC 10.6 K/mm3 (4.5-11.0) 09/26/16 16:20 RBC 4.90 M/mm3 (3.65-5.03) 09/26/16 16:20 Hgb 10.9 gm/dl (11.8-15.2) L 09/26/16 16:20 Hct 34.4 % (35.5-45.6) L 09/26/16 16:20 MCV 70 fl (84-94) L 09/26/16 16:20 MCH 22 pg (28-32) L 09/26/16 16:20 MCHC 32 % (32-34) 09/26/16 16:20 RDW 17.5 % (13.2-15.2) H 09/26/16 16:20 Plt Count 228 K/mm3 (140-440) 09/26/16 16:20 Add Manual Diff Complete 09/26/16 16:20 Total Counted 100 09/26/16 16:20 Seg Neutrophils % Assistant Business Manager 09/26/16 16:20 Seg Neuts % (Manual) 55.0 % (40.0-70.0) 09/26/16 16:20 Band Neutrophils % 38.0 % 09/26/16 16:20 Lymphocytes % (Manual) 3.0 % (13.4-35.0) L 09/26/16 16:20 Reactive Lymphs % (Man) 0 % 09/26/16 16:20 Monocytes % (Manual) 3.0 % (0.0-7.3) 09/26/16 16:20 Eosinophils % (Manual) 1.0 % (0.0-4.3) 09/26/16 16:20 Basophils % (Manual) 0 % (0.0-1.8) 09/26/16 16:20 Metamyelocytes % 0 % 09/26/16 16:20 Myelocytes % 0 % 09/26/16 16:20 Promyelocytes % 0 % 09/26/16 16:20 Blast Cells % 0 % 09/26/16 16:20 Nucleated RBC % Not Reportable 09/26/16 16:20 Seg Neutrophils # Man 5.8 K/mm3 (1.8-7.7) 09/26/16 16:20 Band Neutrophils # 4.0 K/mm3 09/26/16 16:20 Lymphocytes # (Manual) 0.3 K/mm3 (1.2-5.4) L 09/26/16 16:20 Abs React Lymphs (Man) 0.0 K/mm3 09/26/16 16:20 Monocytes # (Manual) 0.3 K/mm3 (0.0-0.8) 09/26/16 16:20 Eosinophils # (Manual) 0.1 K/mm3 (0.0-0.4) 09/26/16 16:20 Basophils # (Manual) 0.0 K/mm3 (0.0-0.1) 09/26/16 16:20 Metamyelocytes # 0.0 K/mm3 09/26/16 16:20 Myelocytes # 0.0 K/mm3 09/26/16 16:20 Promyelocytes # 0.0 K/mm3 09/26/16 16:20 Blast Cells # 0.0 K/mm3 09/26/16 16:20 WBC Morphology Not Reportable 09/26/16 16:20 Hypersegmented Neuts Not Reportable 09/26/16 16:20 Hyposegmented Neuts Not Reportable 09/26/16 16:20 Hypogranular Neuts Not Reportable 09/26/16 16:20 Smudge Cells Not Reportable 09/26/16 16:20 Toxic Granulation Not Reportable 09/26/16 16:20 Toxic Vacuolation Not Reportable 09/26/16 16:20 Dohle Bodies Not Reportable 09/26/16 16:20 Pelger-Huet Anomaly Not Reportable 09/26/16 16:20 Rodney Rods Not Reportable 09/26/16 16:20 Platelet Estimate Consistent w auto 09/26/16 16:20 Clumped Platelets Not Reportable 09/26/16 16:20 Plt Clumps, EDTA Not Reportable 09/26/16 16:20 Large Platelets Not Reportable 09/26/16 16:20 Giant Platelets Not Reportable 09/26/16 16:20 Platelet Satelliting Not Reportable 09/26/16 16:20 Plt Morphology Comment Not Reportable 09/26/16 16:20 RBC Morphology Not Reportable 09/26/16 16:20 Dimorphic RBCs Not Reportable 09/26/16 16:20 Polychromasia Not Reportable 09/26/16 16:20 Hypochromasia Not Reportable 09/26/16 16:20 Poikilocytosis 1+ 09/26/16 16:20 Anisocytosis 1+ 03/16/17 16:20 Microcytosis Not Reportable 09/26/16 16:20 Macrocytosis Not Reportable 09/26/16 16:20 Spherocytes Not Reportable 09/26/16 16:20 Pappenheimer Bodies Not Reportable 09/26/16 16:20 Sickle Cells Not Reportable 09/26/16 16:20 Target Cells Not Reportable 09/26/16 16:20 Tear Drop Cells Not Reportable 09/26/16 16:20 Ovalocytes Not Reportable 09/26/16 16:20 Helmet Cells Not Reportable 09/26/16 16:20 [place] Bodies Not Reportable 09/26/16 16:20 [place] Rings Not Reportable 09/26/16 16:20 Sharmin Cells Not Reportable 09/26/16 16:20 Bite Cells Not Reportable 09/26/16 16:20 Crenated Cell Not Reportable 09/26/16 16:20 Elliptocytes 1+ 09/26/16 16:20 Acanthocytes (Spur) Not Reportable 09/26/16 16:20 Rouleaux Not Reportable 09/26/16 16:20 Hemoglobin C Crystals Not Reportable 09/26/16 16:20 Schistocytes Not Reportable 09/26/16 16:20 Malaria parasites Not Reportable 09/26/16 16:20 Tomi Bodies Not Reportable 09/26/16 16:20 Hem Pathologist Commnt No 09/26/16 16:20 PT 14.7 Sec. (12.2-14.9) 09/26/16 16:20 INR 1.16 (0.87-1.13) H 09/26/16 16:20 VBG pH 7.417 (7.320-7.420) 09/26/16 16:20 Sodium 146 mmol/L (137-145) H 09/27/16 03:34 Potassium 3.1 mmol/L (3.6-5.0) L 09/27/16 03:34 Chloride 101.0 mmol/L (98-107) 09/27/16 03:34 Carbon Dioxide 34 mmol/L (22-30) H 09/27/16 03:34 Anion Gap 14 mmol/L 09/27/16 03:34 BUN 17 mg/dL (9-20) 09/27/16 03:34 Creatinine 0.9 mg/dL (0.8-1.5) 09/27/16 03:34 Estimated GFR > 60 ml/min 09/27/16 03:34 BUN/Creatinine Ratio 18.88 % 09/27/16 03:34 Glucose 150 mg/dL (75-100) H 09/27/16 03:34 Lactic Acid 0.9 mmol/L (0.7-2.0) 09/26/16 20:51 Calcium 8.1 mg/dL (8.4-10.2) L 09/27/16 03:34 Total Bilirubin 0.4 mg/dL (0.1-1.2) 09/27/16 03:34 AST 37 units/L (5-40) 09/27/16 03:34 ALT 22 units/L (7-56) 09/27/16 03:34 Alkaline Phosphatase 83 units/L (35-129) 09/27/16 03:34 Total Protein 7.2 g/dL (6.3-8.2) 09/27/16 03:34 Albumin 2.9 g/dL (3.9-5) L 09/27/16 03:34 Albumin/Globulin Ratio 0.7 % 09/27/16 03:34 Urine Color [place] (Yellow) 09/26/16 16:44 Urine Turbidity Slightly-cloudy (Clear) 09/26/16 16:44 Urine pH 5.0 (5.0-7.0) 09/26/16 16:44 Ur Specific [place] 1.024 (1.003-1.030) 09/26/16 16:44 Urine Protein 30 mg/dl mg/dL (Negative) 09/26/16 16:44 Urine Glucose (UA) Neg mg/dL (Negative) 09/26/16 16:44 Urine Ketones Tr mg/dL (Negative) 09/26/16 16:44 Urine Blood Neg (Negative) 09/26/16 16:44 Urine Nitrite Neg (Negative) 09/26/16 16:44 Urine Bilirubin Neg (Negative) 09/26/16 16:44 Urine Urobilinogen < 2.0 mg/dL (<2.0) 09/26/16 16:44 Ur Leukocyte Esterase Mod (Negative) 09/26/16 16:44 Urine WBC (Auto) 29.0 /HPF (0.0-6.0) H 09/26/16 16:44 Urine RBC (Auto) 3.0 /HPF (0.0-6.0) 09/26/16 16:44 U Epithel Cells (Auto) 2.0 /HPF (0-13.0) 09/26/16 16:44 Urine Bacteria (Auto) 2+ /HPF (Negative) 09/26/16 16:44 Urine Mucus 2+ /HPF 09/26/16 16:44
[2016-09-28] MEDS: PEPCID PO SCH (23:17)
[2016-09-29] MEDS: D5NS 1,000 ML IV SCH (02:15)
[2016-09-29] MEDS: DUONEB 0.5 MG-3 MG/3 ML SOLN IH SCH ×4 (02:54→20:09)
[2016-09-29] MEDS: CEPHULAC FEEDTUBE SCH ×3 (08:50→20:50)
[2016-09-29] MEDS: ASPIRIN FEEDTUBE SCH (10:11)
[2016-09-29] MEDS: LOVENOX SUB-Q SCH ×2 (10:11→22:17)
[2016-09-29] MEDS: PEPCID PO SCH ×2 (10:11→22:17)
[2016-09-29] MEDS: KEPPRA PO SCH ×2 (10:11→22:17)
[2016-09-29] MEDS: VIBRAMYCIN PO SCH (10:11)
[2016-09-29] MEDS: LEVAQUIN 750MG/150ML 750 MG/150 ML BAG IV SCH (10:12)
[2016-09-30] MEDS: D5NS 1,000 ML IV SCH (01:17)
[2016-09-30] MEDS: DUONEB 0.5 MG-3 MG/3 ML SOLN IH SCH ×3 (02:04→15:06)
--- NOTE | 2016-09-30 06:18 | Discharge Summary ---
Providers - Providers Date of Admission: 09/26/16 18:03 Attending physician: SHADY QUINTANA Primary care physician: COST ACCOUNTING CLERK Hospitalization Condition: Stable Hospital course: 66 YO Male admitted for Aspiration Pneumonia and Acute on Chronic Respiratory Failure. PT admitted to medical floor and treated IAW pneumonia protocol. Pt treated with IV abx, IVF, aspiration precautions, pulmonary toilet, and supportive care. Pt convalesced fair during hospital course with improvement in symptoms. Pt medically optimized. Pt has severe dementia and is high risk for recurrent aspiration. Pt seen and evaluated prior to discharge but no significant new physical exam findings since admission. Pt discharged to SNF under care of medical housekeeper. Pt to f/u pcp 1wk. 35 minutes dedicated to pt discharge and education. Disposition: DC/TX SNF W [facility] CERT - Discharge Diagnoses (1) Acute and chronic respiratory failure Status: Acute Qualifiers: Respiratory failure complication: R (2) Aspiration pneumonia Status: Acute Qualifiers: Aspiration pneumonia type: A Laterality: L Lung location: L (3) Debility Status: Acute (4) Dyslipidemia Status: Chronic (5) HTN (hypertension) Status: Chronic Qualifiers: Hypertension type: essential hypertension Qualified Code(s): I10 - Essential (primary) hypertension (6) Sacral wound Status: Chronic Qualifiers: Encounter type: E (7) DVT prophylaxis Status: Acute Core Measure Documentation - Palliative Care Palliative Care/ Comfort Measures: Not Applicable - Core Measures Any of the following diagnoses?: none Exam - Constitutional Vitals: Temp Pulse Resp BP Pulse Ox 99.5 F 112 H 20 168/86 98 09/30/16 04:00 09/30/16 04:00 09/30/16 04:00 09/30/16 04:00 09/29/16 22:00 General appearance: Present: no acute distress - Neck Neck: Present: supple - Respiratory Respiratory: bilateral: diminished - Cardiovascular Rhythm: regular Heart Sounds: Present: S1 & S2 - Extremities Extremities: no ischemia Extremity abnormal: edema Peripheral Pulses: within normal limits - Abdominal General gastrointestinal: Present: soft, non-distended Male genitourinary: Present: normal - Rectal Rectal Exam: normal exam-external/orifice - Integumentary Integumentary: Present: clear, dry, decreased turgor (sacral decub present on admission) - Musculoskeletal Musculoskeletal: generalized weakness - Psychiatric Psychiatric: no intact judgment & insight, no memory intact - Neurologic Neurologic: no gait normal Plan Activity: advance as tolerated Follow up with: PRIMARY CARE, [Primary Care Provider] - 3-5 Days Prescriptions: Levofloxacin [Levaquin TAB] 500 mg PO QDAY #7 tablet
--- NOTE | 2016-09-30 06:28 | Progress Note ---
Assessment and Plan - Patient Problems (1) Acute and chronic respiratory failure Current Visit: Yes Status: Acute Qualifiers: Respiratory failure complication: R Plan to address problem: Supplemental oxygen, nebs, aspiration precautions, supportive care, pulmonary toilet (2) Aspiration pneumonia Current Visit: Yes Status: Acute Qualifiers: Aspiration pneumonia type: A Laterality: L Lung location: L Plan to address problem: Pneumonia Protocol: IV abx, IVF, supportive care,supplemental oxygen, nebs (3) Debility Current Visit: Yes Status: Acute Plan to address problem: Bed alarm, fall precautions. (4) Dyslipidemia Current Visit: No Status: Chronic Plan to address problem: continue current therapy (5) HTN (hypertension) Current Visit: No Status: Chronic Qualifiers: Hypertension type: essential hypertension Qualified Code(s): I10 - Essential (primary) hypertension Plan to address problem: Monitor bp q shift, continue current therapy (6) Sacral wound Current Visit: No Status: Chronic Qualifiers: Encounter type: E Plan to address problem: continue wound care, q 2turns (7) DVT prophylaxis Current Visit: No Status: Acute History Interval history: Pt lying in bed, confused, No reported nursing events. Pt medically stable overnight. Hospitalist Physical - Constitutional Vitals: Temp Pulse Resp BP Pulse Ox 99.5 F 112 H 20 168/86 98 09/30/16 04:00 09/30/16 04:00 09/30/16 04:00 09/30/16 04:00 09/29/16 22:00 General appearance: Present: no acute distress, other (moderate distress chronically ill-appearing) - Neck Neck: Present: supple - Respiratory Respiratory: bilateral: diminished - Cardiovascular Rhythm: regular Heart Sounds: Present: S1 & S2 - Extremities Extremities: no ischemia Peripheral Pulses: within normal limits - Abdominal General gastrointestinal: soft, non-tender, non-distended - Integumentary Integumentary: Present: clear, dry, decreased turgor - Psychiatric Psychiatric: no intact judgment & insight, no memory intact - Neurologic Neurologic: no gait normal Results - Labs CBC & Chem 7: 09/26/16 16:20 09/27/16 03:34 Labs: Laboratory Last Values WBC 10.6 K/mm3 (4.5-11.0) 09/26/16 16:20 RBC 4.90 M/mm3 (3.65-5.03) 09/26/16 16:20 Hgb 10.9 gm/dl (11.8-15.2) L 09/26/16 16:20 Hct 34.4 % (35.5-45.6) L 09/26/16 16:20 MCV 70 fl (84-94) L 09/26/16 16:20 MCH 22 pg (28-32) L 09/26/16 16:20 MCHC 32 % (32-34) 09/26/16 16:20 RDW 17.5 % (13.2-15.2) H 09/26/16 16:20 Plt Count 228 K/mm3 (140-440) 09/26/16 16:20 Add Manual Diff Complete 09/26/16 16:20 Total Counted 100 09/26/16 16:20 Seg Neutrophils % Tobacco Stripper Hand 09/26/16 16:20 Seg Neuts % (Manual) 55.0 % (40.0-70.0) 09/26/16 16:20 Band Neutrophils % 38.0 % 09/26/16 16:20 Lymphocytes % (Manual) 3.0 % (13.4-35.0) L 09/26/16 16:20 Reactive Lymphs % (Man) 0 % 09/26/16 16:20 Monocytes % (Manual) 3.0 % (0.0-7.3) 09/26/16 16:20 Eosinophils % (Manual) 1.0 % (0.0-4.3) 09/26/16 16:20 Basophils % (Manual) 0 % (0.0-1.8) 09/26/16 16:20 Metamyelocytes % 0 % 09/26/16 16:20 Myelocytes % 0 % 09/26/16 16:20 Promyelocytes % 0 % 09/26/16 16:20 Blast Cells % 0 % 09/26/16 16:20 Nucleated RBC % Not Reportable 09/26/16 16:20 Seg Neutrophils # Man 5.8 K/mm3 (1.8-7.7) 09/26/16 16:20 Band Neutrophils # 4.0 K/mm3 09/26/16 16:20 Lymphocytes # (Manual) 0.3 K/mm3 (1.2-5.4) L 09/26/16 16:20 Abs React Lymphs (Man) 0.0 K/mm3 09/26/16 16:20 Monocytes # (Manual) 0.3 K/mm3 (0.0-0.8) 09/26/16 16:20 Eosinophils # (Manual) 0.1 K/mm3 (0.0-0.4) 09/26/16 16:20 Basophils # (Manual) 0.0 K/mm3 (0.0-0.1) 09/26/16 16:20 Metamyelocytes # 0.0 K/mm3 09/26/16 16:20 Myelocytes # 0.0 K/mm3 09/26/16 16:20 Promyelocytes # 0.0 K/mm3 09/26/16 16:20 Blast Cells # 0.0 K/mm3 09/26/16 16:20 WBC Morphology Not Reportable 09/26/16 16:20 Hypersegmented Neuts Not Reportable 09/26/16 16:20 Hyposegmented Neuts Not Reportable 09/26/16 16:20 Hypogranular Neuts Not Reportable 09/26/16 16:20 Smudge Cells Not Reportable 09/26/16 16:20 Toxic Granulation Not Reportable 09/26/16 16:20 Toxic Vacuolation Not Reportable 09/26/16 16:20 Dohle Bodies Not Reportable 09/26/16 16:20 Pelger-Huet Anomaly Not Reportable 09/26/16 16:20 Rodney Rods Not Reportable 09/26/16 16:20 Platelet Estimate Consistent w auto 09/26/16 16:20 Clumped Platelets Not Reportable 09/26/16 16:20 Plt Clumps, EDTA Not Reportable 09/26/16 16:20 Large Platelets Not Reportable 09/26/16 16:20 Giant Platelets Not Reportable 09/26/16 16:20 Platelet Satelliting Not Reportable 09/26/16 16:20 Plt Morphology Comment Not Reportable 09/26/16 16:20 RBC Morphology Not Reportable 09/26/16 16:20 Dimorphic RBCs Not Reportable 09/26/16 16:20 Polychromasia Not Reportable 09/26/16 16:20 Hypochromasia Not Reportable 09/26/16 16:20 Poikilocytosis 1+ 09/26/16 16:20 Anisocytosis 1+ 09/26/16 16:20 Microcytosis Not Reportable 09/26/16 16:20 Macrocytosis Not Reportable 09/26/16 16:20 Spherocytes Not Reportable 09/26/16 16:20 Pappenheimer Bodies Not Reportable 09/26/16 16:20 Sickle Cells Not Reportable 09/26/16 16:20 Target Cells Not Reportable 09/26/16 16:20 Tear Drop Cells Not Reportable 09/26/16 16:20 Ovalocytes Not Reportable 09/26/16 16:20 Helmet Cells Not Reportable 09/26/16 16:20 [place] Bodies Not Reportable 09/26/16 16:20 [place] Rings Not Reportable 09/26/16 16:20 [place] Cells Not Reportable 09/26/16 16:20 Bite Cells Not Reportable 09/26/16 16:20 Crenated Cell Not Reportable 09/26/16 16:20 Elliptocytes 1+ 09/26/16 16:20 Acanthocytes (Spur) Not Reportable 09/26/16 16:20 Rouleaux Not Reportable 09/26/16 16:20 Hemoglobin C Crystals Not Reportable 09/26/16 16:20 Schistocytes Not Reportable 09/26/16 16:20 Malaria parasites Not Reportable 09/26/16 16:20 Tomi Bodies Not Reportable 09/26/16 16:20 Hem Pathologist Commnt No 09/26/16 16:20 PT 14.7 Sec. (12.2-14.9) 09/26/16 16:20 INR 1.16 (0.87-1.13) H 09/26/16 16:20 VBG pH 7.417 (7.320-7.420) 09/26/16 16:20 Sodium 146 mmol/L (137-145) H 09/27/16 03:34 Potassium 3.1 mmol/L (3.6-5.0) L 09/27/16 03:34 Chloride 101.0 mmol/L (98-107) 09/27/16 03:34 Carbon Dioxide 34 mmol/L (22-30) H 09/27/16 03:34 Anion Gap 14 mmol/L 09/27/16 03:34 BUN 17 mg/dL (9-20) 09/27/16 03:34 Creatinine 0.9 mg/dL (0.8-1.5) 09/27/16 03:34 Estimated GFR > 60 ml/min 09/27/16 03:34 BUN/Creatinine Ratio 18.88 % 09/27/16 03:34 Glucose 150 mg/dL (75-100) H 09/27/16 03:34 Lactic Acid 0.9 mmol/L (0.7-2.0) 09/26/16 20:51 Calcium 8.1 mg/dL (8.4-10.2) L 09/27/16 03:34 Total Bilirubin 0.4 mg/dL (0.1-1.2) 09/27/16 03:34 AST 37 units/L (5-40) 09/27/16 03:34 ALT 22 units/L (7-56) 09/27/16 03:34 Alkaline Phosphatase 83 units/L (35-129) 09/27/16 03:34 Total Protein 7.2 g/dL (6.3-8.2) 09/27/16 03:34 Albumin 2.9 g/dL (3.9-5) L 09/27/16 03:34 Albumin/Globulin Ratio 0.7 % 09/27/16 03:34 Urine Color Cherie (Yellow) 09/26/16 16:44 Urine Turbidity Slightly-cloudy (Clear) 09/26/16 16:44 Urine pH 5.0 (5.0-7.0) 09/26/16 16:44 Ur Specific [place] 1.024 (1.003-1.030) 09/26/16 16:44 Urine Protein 30 mg/dl mg/dL (Negative) 09/26/16 16:44 Urine Glucose (UA) Neg mg/dL (Negative) 09/26/16 16:44 Urine Ketones Tr mg/dL (Negative) 09/26/16 16:44 Urine Blood Neg (Negative) 09/26/16 16:44 Urine Nitrite Neg (Negative) 09/26/16 16:44 Urine Bilirubin Neg (Negative) 09/26/16 16:44 Urine Urobilinogen < 2.0 mg/dL (<2.0) 09/26/16 16:44 Ur Leukocyte Esterase Mod (Negative) 09/26/16 16:44 Urine WBC (Auto) 29.0 /HPF (0.0-6.0) H 09/26/16 16:44 Urine RBC (Auto) 3.0 /HPF (0.0-6.0) 09/26/16 16:44 U Epithel Cells (Auto) 2.0 /HPF (0-13.0) 09/26/16 16:44 Urine Bacteria (Auto) 2+ /HPF (Negative) 09/26/16 16:44 Urine Mucus 2+ /HPF 09/26/16 16:44
[2016-09-30] MEDS: LEVAQUIN 750MG/150ML 750 MG/150 ML BAG IV SCH (09:08)
[2016-09-30] MEDS: LOVENOX SUB-Q SCH (09:09)
[2016-09-30] MEDS: KEPPRA PO SCH (09:09)
[2016-09-30] MEDS: CEPHULAC FEEDTUBE SCH ×2 (09:09→14:45)
[2016-09-30] MEDS: ASPIRIN FEEDTUBE SCH (09:09)
[2016-09-30] MEDS: PEPCID PO SCH (09:09)
[2016-09-30 15:46] VITALS: BP 156/97
== END 2016-09-30 19:15 | DRG 177 ==
LOC: ED 15:27 → 3A 18:03
PROVIDERS: ADMIT Internal Medicine; ATTEND Internal Medicine
DX: J69.0 Pneumonitis due to inhalation of food and vomit (principal); G93.40 Encephalopathy, unspecified; J96.21 Acute and chronic respiratory failure with hypoxia; I69.359 Hemiplegia and hemiparesis following cerebral infarction affecting unspecified side; R82.99 Other abnormal findings in urine; E11.9 Type 2 diabetes mellitus without complications; I10 Essential (primary) hypertension; K76.9 Liver disease, unspecified; G40.909 Epilepsy, unspecified, not intractable, without status epilepticus; M19.90 Unspecified osteoarthritis, unspecified site; J44.9 Chronic obstructive pulmonary disease, unspecified; K21.9 Gastro-esophageal reflux disease without esophagitis; E78.5 Hyperlipidemia, unspecified; L89.609 Pressure ulcer of unspecified heel, unspecified stage; L89.159 Pressure ulcer of sacral region, unspecified stage; Z93.1 Gastrostomy status
CPT/HCPCS: 36415; 71010; 80053; 81001; 82140; 82805; 82962; 85007; 85025; 85610; 87040; 87086; 90686; 93005; 93010; 94640; 94760; 96365; 96366; J1650; J1956; J2543; J7030; J7040; J7042

== ENCOUNTER 2016-10-03 11:57 | Emergency (ER) | payer MEDICARE ==
[~2016-10-03 11:57] MED LIST: ADRENALIN ONE
--- NOTE | 2016-10-03 12:23 | Emergency Department Report ---
ED CPR HPI - General Chief Complaint: Cardiac Arrest/CPR Stated Complaint: CARDIAC ARREST Time Seen by Provider: 10/03/16 12:07 Source: EMS, old records reviewed Mode of arrival: Stretcher Limitations: Other - History of Present Illness Initial Comments: 66-year-old male [facility] the emergency department via [facility] in cardiac arrest. Per report, the patient was last seen normal at 10:45 AM. Patient was reportedly found unresponsive at 11:15 and EMS was called. EMS found the patient to be in asystole. ACLS protocol was initiated. Patient was intubated by EMS. EMS states en route to the emergency department patient's rhythm transitioned from asystole to PEA and into ventricular fibrillation. En route to the hospital, patient received a total of 4 mg of epinephrine, one dose of Narcan, 1 amp of D50, 1 amp of sodium bicarbonate, and 300 mg of amiodarone. He also received 2 shocks from the defibrillator. Further history is unable to be obtained from patient due to his clinical condition. MD Complaint: found unresponsive Time: 11:15 Place: MD/SNF Initial Findings in the Field: unresponsive, no respirations, no pulse, PEA ROSC in the Field: No Treatments Prior to Arrival: intubation, chest compressions, defribrillated shocks # (2), epinephrine mgs # (4), sodium bicarbonate, amiodarone, glucose - Related Data Home Medications Medication Instructions Recorded Confirmed Last Taken Ascorbate Calcium [Vitamin C] 500 mg FEEDTUBE BID 09/15/14 06/24/16 Unknown Aspirin [Aspirin TAB] 325 mg FEEDTUBE QDAY 09/15/14 06/24/16 Unknown Atorvastatin [Lipitor] 80 mg FEEDTUBE QHS 09/15/14 06/24/16 Unknown Enoxaparin [Lovenox] 30 mg SQ BID 09/15/14 06/24/16 Unknown Glycopyrrolate [Robinul Forte] 2 mg FEEDTUBE TID 09/15/14 06/24/16 Unknown Ipratropium/Albuterol Sulfate 1 ampul IH Q6HRT PRN 09/15/14 06/24/16 Unknown [Duoneb 0.5 mg-3 mg/3 ml Soln] Metoprolol [Lopressor TAB] 50 mg FEEDTUBE BID 09/15/14 06/24/16 Unknown amLODIPine [Norvasc] 10 mg FEEDTUBE DAILY 09/15/14 06/24/16 Unknown Multivit &Minerals/Ferrous Fum 9 mg PO DAILY 11/04/14 06/24/16 Unknown [Complete Multivit-Mineral Liq] Previous Rx's Medication Instructions Recorded Last Taken Type Lactulose [Cephulac] 20 gm FEEDTUBE TID #30 oral.liqd 05/10/15 Unknown Rx Lipase/Protease/Amylase [Pancreaze 1 each FEEDTUBE PRN PRN #30 capsule 05/10/15 Unknown Rx 10,500 Unit] Simple Syrup 30 ml FEEDTUBE PRN PRN #30 05/10/15 Unknown Rx oral.liqd Sodium Bicarbonate 325 mg FEEDTUBE PRN PRN #30 tablet 05/10/15 Unknown Rx LORazepam [Ativan] 2 mg PO Q8HR PRN #30 tablet 03/22/16 Unknown Rx levETIRAcetam [Keppra TAB] 500 mg PO BID #60 tablet 06/25/16 Unknown Rx Famotidine [Pepcid] 20 mg PO BID tablet 09/30/16 Unknown Rx Ipratropium/Albuterol Sulfate 1 ampul IH Q6HRT ampul.neb 09/30/16 Unknown Rx [Duoneb 0.5 mg-3 mg/3 ml Soln] Levofloxacin [Levaquin TAB] 500 mg PO QDAY #7 tablet 09/30/16 Unknown Rx Allergies Allergy/AdvReac Type Severity Reaction Status Date / Time No Known Allergies Allergy Verified 08/20/14 06:01 ED Review of Systems ROS: Stated complaint: CARDIAC ARREST Other details as noted in HPI Comment: Unobtainable due to pts medical conditions ED Past Medical Hx - Past Medical History Previous Medical History?: Yes Hx Hypertension: Yes Hx CVA: Yes Hx Heart Attack/AMI: Yes Hx Congestive Heart Failure: No Hx Diabetes: Yes Hx Liver Disease: Yes Hx Arthritis: Yes Hx Seizures: Yes Hx Asthma: Yes Hx COPD: Yes Hx Dementia: Yes Hx HIV: No Additional medical history: End Stage Liver Disease. Trach. Encephalopathy. Anemia. Gastrostomy. Aphasia. GI Bleed. Hyperlipidemia. - Surgical History Past Surgical History?: Yes Additional Surgical History: PEG placement. - Family History Family history: no significant - Social History Smoking Status: Unknown if ever smoked - Medications Home Medications: Home Medications Medication Instructions Recorded Confirmed Last Taken Type Ascorbate Calcium [Vitamin C] 500 mg FEEDTUBE BID 09/15/14 06/24/16 Unknown History Aspirin [Aspirin TAB] 325 mg FEEDTUBE QDAY 09/15/14 06/24/16 Unknown History Atorvastatin [Lipitor] 80 mg FEEDTUBE QHS 09/15/14 06/24/16 Unknown History Enoxaparin [Lovenox] 30 mg SQ BID 09/15/14 06/24/16 Unknown History Glycopyrrolate [Robinul Forte] 2 mg FEEDTUBE TID 09/15/14 06/24/16 Unknown History Ipratropium/Albuterol Sulfate 1 ampul IH Q6HRT PRN 09/15/14 06/24/16 Unknown History [Duoneb 0.5 mg-3 mg/3 ml Soln] Metoprolol [Lopressor TAB] 50 mg FEEDTUBE BID 09/15/14 06/24/16 Unknown History amLODIPine [Norvasc] 10 mg FEEDTUBE DAILY 09/15/14 06/24/16 Unknown History Multivit &Minerals/Ferrous Fum 9 mg PO DAILY 11/04/14 06/24/16 Unknown History [Complete Multivit-Mineral Liq] Lactulose [Cephulac] 20 gm FEEDTUBE TID #30 oral.liqd 05/10/15 06/24/16 Unknown Rx Lipase/Protease/Amylase [Pancreaze 1 each FEEDTUBE PRN PRN #30 capsule 05/10/15 06/24/[address] 10,500 Unit] Simple Syrup 30 ml FEEDTUBE PRN PRN #30 05/10/15 06/24/16 Unknown Rx oral.liqd Sodium Bicarbonate 325 mg FEEDTUBE PRN PRN #30 tablet 05/10/15 06/24/16 Unknown Rx LORazepam [Ativan] 2 mg PO Q8HR PRN #30 tablet 03/22/16 06/24/16 Unknown Rx levETIRAcetam [Keppra TAB] 500 mg PO BID #60 tablet 06/25/16 Unknown Rx Famotidine [Pepcid] 20 mg PO BID tablet 09/30/16 Unknown Rx Ipratropium/Albuterol Sulfate 1 ampul IH Q6HRT ampul.neb 09/30/16 Unknown Rx [Duoneb 0.5 mg-3 mg/3 ml Soln] Levofloxacin [Levaquin TAB] 500 mg PO QDAY #7 tablet 09/30/16 Unknown Rx ED Physical Exam - General Limitations: Other General appearance: obtunded - Head Head exam: Present: atraumatic, normocephalic - Eye Eye exam: Present: normal appearance. Absent: PERRL (pupils 5 mm equal and fixed) - ENT ENT exam: Present: mucous membranes moist, other (7.[address]) - Neck Neck exam: Present: normal inspection, full ROM - Respiratory Respiratory exam: Present: normal lung sounds bilaterally (with assisted ventilation) - Cardiovascular Cardiovascular Exam: Present: other (no palpable pulses) - GI/Abdominal GI/Abdominal exam: Present: soft. Absent: distended - Extremities Exam Extremities exam: Present: other (contractures noted to bilateral lower extremities and left upper extremity. IO noted to right tibia placed by EMS.) - Back Exam Back exam: Present: normal inspection - Neurological Exam Neurological exam: Present: other (GCS 3T (E1, V1T, M1)) - Skin Skin exam: Present: warm, dry ED Course - Reevaluation(s) Reevaluation #1: 10/03/16 12:35 CPR was continued in the emergency department under my supervision. Patient received 2 more doses of epinephrine. He remained PEA on the monitor. At that ultrasound was performed showing no cardiac motion. After 45 minutes of total resuscitation time, further efforts were deemed futile. Time of recorded as 1202. Patient's primary care physician has been notified and will sign of deficit.. ED Medical Decision Making - Differential Diagnosis cardiac arrest, arrhythmia Critical care attestation.: If time is entered above; I have spent that time in minutes in the direct care of this critically ill patient, excluding procedure time. ED Disposition Clinical Impression: Cardiac arrest Disposition: Is pt being admited?: No Condition: Stable Referrals: PRIMARY CARE,MD [Primary Care Provider] - 3-5 Days Time of Disposition: 12:37
== END 2016-10-03 17:55 ==
LOC: ED 11:57
DX: I46.9 Cardiac arrest, cause unspecified (principal); I10 Essential (primary) hypertension; E11.9 Type 2 diabetes mellitus without complications; J45.909 Unspecified asthma, uncomplicated; J44.9 Chronic obstructive pulmonary disease, unspecified; F03.90 Unspecified dementia, unspecified severity, without behavioral disturbance, psychotic disturbance, mood disturbance, and anxiety; Z86.73 Personal history of transient ischemic attack (TIA), and cerebral infarction without residual deficits; E78.00 Pure hypercholesterolemia, unspecified
CPT/HCPCS: 92950; 99285; J0171